=== PATIENT | female | born 1995 | race Caucasian/White ===

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

== ENCOUNTER 2017-10-12 15:55 | Inpatient (IN) | payer OTHER ==
[~2017-10-12] VITALS: Ht 167.6 cm; Wt 69.6 kg
[2017-10-12 16:56] LABS: BASO % 0.3 %; BASO ABS # 0.03 K/uL (0-0.2); EOS % 1.1 %; HEMATOCRIT 38.5 % (37-47); HEMOGLOBIN 12.7 g/dL (12.0-16.0); IG# 0.02 K/uL (0.00-0.02); LYMPH % 15.6 %; MEAN CELL VOLUME 90.2 fL (80-100); MEAN CORPUSCULAR HEMOGLOBIN 29.7 pg (25-34); MEAN PLATELET VOLUME 9.6 fL (7.4-10.4); MONO % 5.6 %; NEUT % 77.2 %; NEUT ABS # 6.95 K/uL (1.4-6.5); PLATELET COUNT 177 K/uL (130-400); RED CELL DISTRIBUTION WIDTH CV 12.8 % (11.5-14.5)
[2017-10-12 17:07] LABS: INR 1.1 (0.9-1.1)
[2017-10-12 17:25] LABS: ALBUMIN 4.2 gm/dl (3.4-5.0); CALCIUM 9.1 mg/dl (8.5-10.1); CREATININE 0.67 mg/dl (0.60-1.20); POTASSIUM 4.5 mmol/L (3.5-5.1)
[2017-10-12 17:34] LABS: CKMB 0.6 ng/ml (0.5-3.6); TOTAL PROTEIN 7.8 gm/dl (6.4-8.2)
[2017-10-12] MEDS ORDERED: OPTIRAY 320 IV PRN (17:45)
--- NOTE | 2017-10-12 18:15 | DIAGNOSTIC IMAGING REPORT ---
(CHEST FOR PE) ANGIO WITH CT DOSE: 209.53 mGy.cm HISTORY: Chest pain dyspnea TECHNIQUE: Multiaxial CT images of the chest were performed following the intravenous administration of contrast to evaluate the pulmonary arteries. Maximal intensity projection images were also obtained. A dose lowering technique was utilized adhering to the principles of ALARA. COMPARISON STUDY: 07/04/2015 FINDINGS: Thoracic aorta is unremarkable in course and caliber. There are findings of extensive acute pulmonary emboli involving the first order and/or primary right as well as left pulmonary arterial vasculature. There is no evidence for pulmonary embolus. Extensive emboli are identified throughout both hemithoraces. Lungs remain generally clear. IMPRESSION: Extensive bilateral acute pulmonary emboli. This report was phoned to the emergency room The above report was generated using voice recognition software. It may contain grammatical, syntax or spelling errors. Electronically signed by: Hema Harrison M.D. 10/12/2017 6:14 PM Dictated Date/Time: 10/12/2017 6:09 PM
--- NOTE | 2017-10-12 18:49 | EMERGENCY ROOM VISIT NOTE ---
History Report prepared by Adele: Gwen Hopkins Under the Supervision of: Dr. Ponce Rose D.O. First contact with patient: 16:27 Chief Complaint: CHEST PAIN Stated Complaint: CHEST PAIN, SHORTNESS OF BREATH-[facility] REF Nursing Triage Summary: PT c/o SOB and CP intermittently x 1 week. 2015 Had PE. AntiThrombinDeficiency Hx. ASA 81mg/day, did not take today Bilateral calf pain she believes from working out. Sent her from [facility] History of Present Illness The patient is a 22 year old female who presents to the Emergency Room with complaints of intermittent chest pain starting 1 week ago. She was seen at [facility] and sent to the ED. The chest pain became constant yesterday. Her chest pain occurs with exertion and improves with resting. She is also having discomfort with deep inspiration. She has also been SOB with walking. She denies any recent upper respiratory symptoms. She has been having discomfort in the left leg for the past month which occurs mostly with working out. She has a history of antithrombin deficiency. She had a PE 2 years ago. This pain is not as severe as her previous PE. Source of History: patient Onset: 1 week ago Position: chest Quality: other (pain) Timing: intermittent Modifying Factors (Worsening): exertion Modifying Factors (Relieving): rest Associated Symptoms: + SOB Note: Pt reports left leg pain. Review of Systems See HPI for pertinent positives & negatives. A total of 10 systems reviewed and were otherwise negative. Past Medical & Surgical Medical Problems: (1) Factor V deficiency (2) Pulmonary embolism Family History Blood clots Factor V deficiency Social History Smoking Status: Never Smoker Drug Use: none Marital Status: single Occupation Status: [employer] student Current/Historical Medications No Active Prescriptions or Reported Meds Allergies Coded Allergies: Diclofenac (Verified Allergy, Severe, CHOKING, 10/12/17) Sulfamethoxazole w/Trimethoprim (Unverified Allergy, Severe, CHOAKING, ) Physical Exam Vital Signs Date Time Temp Pulse Resp B/P (MAP) Pulse Ox O2 Delivery O2 Flow Rate FiO2 10/12/17 20:18 79 16 128/83 96 Room Air 10/12/17 18:26 85 20 132/91 95 Room Air 10/12/17 16:55 76 10/12/17 16:07 98 Room Air 10/12/17 16:03 36.9 83 18 112/73 97 Room Air Physical Exam CONSTITUTIONAL/VITAL SIGNS: Reviewed / noted above. GENERAL: Non-toxic in appearance. INTEGUMENTARY: Warm, dry, and [place]. HEAD: Normocephalic. EYES: without scleral icterus or trauma. ENT/OROPHARYNX: clear and moist. LYMPHADENOPATHY/NECK: Is supple without lymphadenopathy or meningismus. RESPIRATORY: Lungs clear and equal. CARDIOVASCULAR: Regular rate and rhythm. GI/ABDOMEN: Soft and nontender. No organomegaly or pulsatile mass. No rebound or guarding. Normal bowel sounds. EXTREMITIES: Warm and well perfused. BACK: No CVA tenderness. NEUROLOGICAL: Intact without focal deficits. PSYCHIATRIC: normal affect. MUSCULOSKELETAL: Normally developed with good muscle tone. Medical Decision & Procedures ER Provider Diagnostic Interpretation: Radiology results as stated below per my review and radiologist interpretation: (CHEST FOR PE) ANGIO WITH CT DOSE: 209.53 mGy.cm HISTORY: Chest pain dyspnea TECHNIQUE: Multiaxial CT images of the chest were performed following the intravenous administration of contrast to evaluate the pulmonary arteries. Maximal intensity projection images were also obtained. A dose lowering technique was utilized adhering to the principles of ALARA. COMPARISON STUDY: 07/04/2015 FINDINGS: Thoracic aorta is unremarkable in course and caliber. There are findings of extensive acute pulmonary emboli involving the first order and/or primary right as well as left pulmonary arterial vasculature. There is no evidence for pulmonary embolus. Extensive emboli are identified throughout both hemithoraces. Lungs remain generally clear. IMPRESSION: Extensive bilateral acute pulmonary emboli. This report was phoned to the emergency room The above report was generated using voice recognition software. It may contain grammatical, syntax or spelling errors. Electronically signed by: Hema Harrison M.D. 10/12/2017 6:14 PM Dictated Date/Time: 10/12/2017 6:09 PM Laboratory Results 10/12/17 16:45 Red Blood Count 4.27, Mean Corpuscular Volume 90.2, Mean Corpuscular Hemoglobin 29.7, Mean Corpuscular Hemoglobin Concent 33.0, Mean Platelet Volume 9.6, Neutrophils (%) (Auto) 77.2, Lymphocytes (%) (Auto) 15.6, Monocytes (%) (Auto) 5.6, Eosinophils (%) (Auto) 1.1, Basophils (%) (Auto) 0.3, Neutrophils # (Auto) 6.95, Lymphocytes # (Auto) 1.40, Monocytes # (Auto) 0.50, Eosinophils # (Auto) 0.10, Basophils # (Auto) 0.03 10/12/17 16:45 Test 10/12/17 16:45 White Blood Count 9.00 K/uL (4.8-10.8) Red Blood Count 4.27 M/uL (4.2-5.4) Hemoglobin 12.7 g/dL (12.0-16.0) Hematocrit 38.5 % (37-47) Mean Corpuscular Volume 90.2 fL (80-100) Mean Corpuscular Hemoglobin 29.7 pg (25-34) Mean Corpuscular Hemoglobin Concent 33.0 g/dl (32-36) Platelet Count 177 K/uL (130-400) Mean Platelet Volume 9.6 fL (7.4-10.4) Neutrophils (%) (Auto) 77.2 % Lymphocytes (%) (Auto) 15.6 % Monocytes (%) (Auto) 5.6 % Eosinophils (%) (Auto) 1.1 % Basophils (%) (Auto) 0.3 % Neutrophils # (Auto) 6.95 K/uL (1.4-6.5) Lymphocytes # (Auto) 1.40 K/uL (1.2-3.4) Monocytes # (Auto) 0.50 K/uL (0.11-0.59) Eosinophils # (Auto) 0.10 K/uL (0-0.5) Basophils # (Auto) 0.03 K/uL (0-0.2) RDW Standard Deviation 42.0 fL (36.4-46.3) RDW Coefficient of Variation 12.8 % (11.5-14.5) Immature Granulocyte % (Auto) 0.2 % Immature Granulocyte # (Auto) 0.02 K/uL (0.00-0.02) Prothrombin Time 11.1 SECONDS (9.0-12.0) Prothromb Time International Ratio 1.1 (0.9-1.1) Activated Partial Thromboplast Time 27.0 SECONDS (21.0-31.0) Partial Thromboplastin Ratio 1.0 Anion Gap 7.0 mmol/L (3-11) Est Creatinine Clear Calc Drug Dose 135.5 ml/min Estimated GFR () 146.7 Estimated GFR (Non- 126.5 BUN/Creatinine Ratio 18.1 (10-20) Calcium Level 9.1 mg/dl (8.5-10.1) Total Bilirubin 0.7 mg/dl (0.2-1) Direct Bilirubin 0.2 mg/dl (0-0.2) Aspartate Amino Transf (AST/SGOT) 11 U/L (15-37) Alanine Aminotransferase (ALT/SGPT) 15 U/L (12-78) Alkaline Phosphatase 52 U/L (45-117) Total Creatine Kinase 30 U/L (26-192) Creatine Kinase MB 0.6 ng/ml (0.5-3.6) Creatine Kinase MB Ratio 2.0 (0-3.0) Troponin I 0.116 ng/ml (0-0.045) Total Protein 7.8 gm/dl (6.4-8.2) Albumin 4.2 gm/dl (3.4-5.0) Lipase 141 U/L (73-393) Laboratory results as stated above per my review. Medications Administered Medications (Trade) Dose Ordered Sig/Concepción Route Start Time Stop Time Status Last Admin Dose Admin Heparin Sodium (Porcine) (Heparin Sq 5000 Unit/0.5ml) 5,000 unit NOW ONCE IV 10/12/17 19:45 10/12/17 19:46 DC 10/12/17 19:43 5,000 UNIT Heparin Sodium/ Dextrose 500 ml @ 23 mls/hr [id number] PRN IV 10/12/17 19:45 10/12/17 23:59 10/12/17 19:43 23 MLS/HR Acetaminophen (Tylenol Tab) 650 mg Q4H PRN PO 10/12/17 20:00 11/11/17 19:59 10/12/17 22:09 650 MG ECG Per My Interpretation Indication: chest pain Rate (beats per minute): 75 Rhythm: normal sinus Findings: other (no ST elevation, no ST depression) ED Course 1627: Previous medical records were reviewed. The patient was evaluated in room B11A. A complete history and physical examination was performed. 1811: Dr. Harrison of radiology phoned to inform me of the CT results. 1816: Heparin Sodium/Dextrose IV. 1822: On reevaluation, the patient is resting comfortably. I discussed the results and findings with her. She verbalized agreement of the treatment plan. The patient will be evaluated for further management and care. 1934: I discussed the patient's case with JOHN Davison hospitalist. The patient will be evaluated for further treatment and disposition. Medical Decision the differential was considered includes acute myocardial infarction, acute coronary syndrome, myocarditis, pericarditis, pericardial effusions /tamponad, esophageal perforation, thoracic aortic dissection, pulmonary embolism, pneumonia, pneumothorax, pancreatitis, shingles, acute cholecystitis, perforated abdominal viscus. This is a 22-year-old female who presents to the ED with a chief complaint of chest discomfort as well as some tenderness in the upper portion of her chest. She also reports shortness of breath with walking. Initially will come and go over the past week but it has been continuous over the past 24 hours or so. The patient reports a history of PEs. She states that she had a PE 2 years ago. The patient states that when she went to [facility], her doctor gave her 3 shots of Lovenox for 3 days because of an elevated d-dimer. The patient does not have any follow-up when she returned until today when she went [facility]. The patient was sent here for further evaluation after being evaluated there. An EKG here shows a normal sinus rhythm. Her CBC is normal, complete metabolic panel was normal. Troponin is slightly elevated at 0.116. CT scan of the chest reveals extensive bilateral PEs. The patient has remained hemodynamically stable during her stay here. She was told the results of the test. She was started on IV heparin. She will be seen by the hospitalist for further inpatient evaluation and care. Medication Reconcilliation Current Medication List: was personally reviewed by wv Blood Pressure Screening Patient's blood pressure: Normal blood pressure Blood pressure disposition: Did not require urgent referral Consults Time Called: 1817 Consulting Physician: JOHN Davison hospitalist Returned Call: [phone] Discussed the patient's case. The patient will be evaluated for further treatment and disposition. Impression Primary Impression: Bilateral pulmonary embolism Additional Impression: Elevated troponin Critical Care I have personally spent 30 minutes of critical care time in the direct management of this patient. This includes bedside care, interpretation of diagnostic studies, and testing, discussion with consultants, patient, and family members, and other required patient management activities. This 30 minutes is in excess of all separately billable procedures. Scribe Attestation The scribe's documentation has been prepared under my direction and personally reviewed by me in its entirety. I confirm that the note above accurately reflects all work, treatment, procedures, and medical decision making performed by me. Departure Information Dispostion Being Evaluated By Hospitalist Prescriptions No Active Prescriptions or Reported Meds Referrals [facility] (PCP) Patient Instructions My [facility] Problem Qualifiers
[2017-10-12] MEDS ORDERED: HEPARIN SOD 5000 UNIT/0.5 ML CARP IV ONE (19:45)
[2017-10-12] MEDS ORDERED: HEPARIN 25,000 UNIT/500ML D5W 500 ML IV PRN (19:45)
[2017-10-12] MEDS ORDERED: ONDANSETRON INJ 2 MG/ML 2 ML VIAL IV PRN (20:00)
[2017-10-12] MEDS ORDERED: WARFARIN SOD 7.5 MG TAB PO ONE (20:00)
[2017-10-12] MEDS ORDERED: MAGNESIUM HYDROXIDE SUSP 30 ML UDC PO PRN (20:00)
[2017-10-12] MEDS ORDERED: POLYETHYLENE (MIRALAX) 17 GM PACK PO PRN (20:00)
[2017-10-12] MEDS ORDERED: ALUMINUM/MAGNESIUM/SIMETH (MAALOX MAX) 30 ML UDC PO PRN (20:00)
--- NOTE | 2017-10-12 20:11 | Medical Consult ---
Consultation Date of Consultation: Oct 12, 2017. 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 She was admitted to the hospital with BL PEs 10/14. She was subsequently diagnosed with ATIII deficiency and remained on Coumadin for an extended period. Over winter she had returned to her [place], [place]. She developed pleuritic CP prior to returning to [place]. Assuming that she likely had a PE, her primary MD in [facility] provided her with a few doses of Lovenox for the trip back to the [facility], where she was to follow up with her local MD. She completed the prescribed Lovenox but did not follow up. She presents today with pleuritic CP. A CTA was repeated and again revealed acute BL pulmonary emboli. CTA: There are findings of extensive acute pulmonary emboli involving the first order and/or primary right as well as left pulmonary arterial vasculature. Extensive emboli are identified throughout both hemithoraces. Lungs remain generally clear. 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[facility] Smoking Status: Never Smoker Drug Use: none Marital Status: single Occupation Status: [employer] student Allergies Coded Allergies: Diclofenac (Verified Allergy, Severe, CHOKING, 10/12/17) Sulfamethoxazole w/Trimethoprim (Unverified Allergy, Severe, CHOAKING, ) Current Inpatient Medications Current Inpatient Medications Medications (Trade) Dose Ordered Sig/Concepción Route Start Time Stop Time Status Last Admin Dose Admin Ioversol (Optiray 320) 100 ml UD PRN IV 10/12/17 17:45 10/16/17 17:44 Heparin Sodium/ Dextrose 500 ml @ 23 mls/hr [id number] PRN IV 10/12/17 19:45 10/12/17 23:59 10/12/17 19:43 23 MLS/HR Warfarin Sodium (Coumadin Tab) 7.5 mg NOW PO 10/12/17 20:00 11/11/17 19:59 UNV Review of Systems Constitutional: No fever, No chills, No sweats Eyes: No worsening of vision ENT: No hearing loss, No unusual epistaxis, No nasal symptoms Respiratory: No cough, No wheezing Cardiovascular: + chest pain, No PND Abdomen: No pain, No nausea Genitourinary - Female: No dysuria, No urinary frequency, No urinary urgency Neurologic: No memory loss, No paralysis, No weakness Psychiatric: No depression symptoms Endocrine: No fatigue Hematologic / Lymphatic: No abnormal bleeding/bruising Integumentary: No rash Allergic / Immunologic: No environmental allergies Physical Exam Date Time Temp Pulse Resp B/P (MAP) Pulse Ox O2 Delivery O2 Flow Rate FiO2 10/12/17 18:26 85 20 132/91 95 Room Air 10/12/17 16:55 76 10/12/17 16:07 98 Room Air 10/12/17 16:03 36.9 83 18 112/73 97 Room Air General Appearance: WD/WN, no apparent distress Head: normocephalic Eyes: normal inspection ENT: normal ENT inspection, pharynx normal Neck: supple, no JVD Respiratory/Chest: chest non-tender, lungs clear, normal breath sounds Cardiovascular: regular rate, rhythm, no edema Abdomen/GI: normal bowel sounds, non tender, soft Back: normal inspection, no CVA tenderness Extremities/Musculoskelatal: normal inspection, no calf tenderness 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, no motor/sensory deficits, alert Skin: normal color Laboratory Results Last 24 Hours Test 10/12/17 16:45 White Blood Count 9.00 K/uL Red Blood Count 4.27 M/uL Hemoglobin 12.7 g/dL Hematocrit 38.5 % Mean Corpuscular Volume 90.2 fL Mean Corpuscular Hemoglobin 29.7 pg Mean Corpuscular Hemoglobin Concent 33.0 g/dl Platelet Count 177 K/uL Mean Platelet Volume 9.6 fL Neutrophils (%) (Auto) 77.2 % Lymphocytes (%) (Auto) 15.6 % Monocytes (%) (Auto) 5.6 % Eosinophils (%) (Auto) 1.1 % Basophils (%) (Auto) 0.3 % Neutrophils # (Auto) 6.95 K/uL Lymphocytes # (Auto) 1.40 K/uL Monocytes # (Auto) 0.50 K/uL Eosinophils # (Auto) 0.10 K/uL Basophils # (Auto) 0.03 K/uL RDW Standard Deviation 42.0 fL RDW Coefficient of Variation 12.8 % Immature Granulocyte % (Auto) 0.2 % Immature Granulocyte # (Auto) 0.02 K/uL Prothrombin Time 11.1 SECONDS Prothromb Time International Ratio 1.1 Activated Partial Thromboplast Time 27.0 SECONDS Partial Thromboplastin Ratio 1.0 Sodium Level 139 mmol/L Potassium Level 4.5 mmol/L Chloride Level 105 mmol/L Carbon Dioxide Level 27 mmol/L Anion Gap 7.0 mmol/L Blood Urea Nitrogen 12 mg/dl Creatinine 0.67 mg/dl Est Creatinine Clear Calc Drug Dose 135.5 ml/min Estimated GFR () 146.7 Estimated GFR (Non- 126.5 BUN/Creatinine Ratio 18.1 Random Glucose 87 mg/dl Calcium Level 9.1 mg/dl Total Bilirubin 0.7 mg/dl Direct Bilirubin 0.2 mg/dl Aspartate Amino Transf (AST/SGOT) 11 U/L Alanine Aminotransferase (ALT/SGPT) 15 U/L Alkaline Phosphatase 52 U/L Total Creatine Kinase 30 U/L Creatine Kinase MB 0.6 ng/ml Creatine Kinase MB Ratio 2.0 Troponin I 0.116 ng/ml Total Protein 7.8 gm/dl Albumin 4.2 gm/dl Lipase 141 U/L Assessment & Plan 22 y/o F 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 She was admitted to the hospital with BL PEs 10/14. She was subsequently diagnosed with ATIII deficiency and remained on Coumadin for an extended period. Over winter she had returned to her [place] country, [place]. She developed pleuritic CP prior to returning to [employer]. Assuming that she likely had a PE, her primary MD in [place] provided her with a few doses of Lovenox for the trip back to the [facility], where she was to follow up with her local MD. She completed the prescribed Lovenox but did not follow up. She presents today with pleuritic CP. A CTA was repeated and again revealed acute BL pulmonary emboli. The pt does not exhibit tachycardia, hypoxia or evidence of significant heart strain. She is pending a LE ultrasound. She will likely be DCd to follow-up with Dr Jones in the coming week. The pt has requested Coumadin for anticoagulation as she does not trust the newer agents. We will start her on Coumadin and have provided her with Lovenox to last until she is able to attend the Coumadin clinic. She is instructed to return to the hospital with worsening CP, onset of SOB or palpitations. Instructed to avoid activities which can lead to significant trauma - such ac contact sports - while on Coumadin Total time for this consult including review of labs, meds, imaging, records - discussion with pt, ER attending, Coumadin clinic attending - 40 min
--- NOTE | 2017-10-12 21:02 | DIAGNOSTIC IMAGING REPORT ---
VENOUS DOPPLER LWR EXT BILA HISTORY: Pain. Edema. DVT COMPARISON STUDY: None. FINDINGS: There is normal compressibility, flow, and augmentation within the bilateral lower extremity deep venous systems. IMPRESSION: No DVT within the right or left lower extremity. The above report was generated using voice recognition software. It may contain grammatical, syntax or spelling errors. Electronically signed by: Hema Harrison M.D. 10/12/2017 9:01 PM Dictated Date/Time: 10/12/2017 9:01 PM
--- NOTE | 2017-10-12 21:22 | History and Physical ---
History & Physical Date of Service Oct 12, 2017. 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 She was admitted to the hospital with BL PEs 10/14. She was subsequently diagnosed with ATIII deficiency and remained on Coumadin for an extended period. Over winter she had returned to her [place], [place]. She developed pleuritic CP prior to returning to [place]. Assuming that she likely had a PE, her primary MD in [facility] provided her with a few doses of Lovenox for the trip back to the [facility], where she was to follow up with her local MD. She completed the prescribed Lovenox but did not follow up. She presents today with pleuritic CP. A CTA revealed acute BL pulmonary emboli. The pt does not c/o SOB, palpitations or fevers. CTA: There are findings of extensive acute pulmonary emboli involving the first order and/or primary right as well as left pulmonary arterial vasculature. Extensive emboli are identified throughout both hemithoraces. Lungs remain generally clear. 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[facility] Smoking Status: Never Smoker Drug Use: none Marital Status: single Occupation Status: [employer] student Allergies Coded Allergies: Diclofenac (Verified Allergy, Severe, CHOKING, 10/12/17) Sulfamethoxazole w/Trimethoprim (Unverified Allergy, Severe, CHOAKING, ) Current Inpatient Medications Current Inpatient Medications Medications (Trade) Dose Ordered Sig/Concepción Route Start Time Stop Time Status Last Admin Dose Admin Ioversol (Optiray 320) 100 ml UD PRN IV 10/12/17 17:45 10/16/17 17:44 Heparin Sodium/ Dextrose 500 ml @ 23 mls/hr [id number] PRN IV 10/12/17 19:45 10/12/17 23:59 10/12/17 19:43 23 MLS/HR Warfarin Sodium (Coumadin Tab) 7.5 mg NOW PO 10/12/17 20:00 11/11/17 19:59 UNV Review of Systems Constitutional: No fever, No chills, No sweats Eyes: No worsening of vision ENT: No hearing loss, No unusual epistaxis, No nasal symptoms Respiratory: No cough, No wheezing Cardiovascular: + chest pain, No PND Abdomen: No pain, No nausea Genitourinary - Female: No dysuria, No urinary frequency, No urinary urgency Neurologic: No memory loss, No paralysis, No weakness Psychiatric: No depression symptoms Endocrine: No fatigue Hematologic / Lymphatic: No abnormal bleeding/bruising Integumentary: No rash Allergic / Immunologic: No environmental allergies Physical Exam Date Time Temp Pulse Resp B/P (MAP) Pulse Ox O2 Delivery O2 Flow Rate FiO2 10/12/17 18:26 85 20 132/91 95 Room Air 10/12/17 16:55 76 10/12/17 16:07 98 Room Air 10/12/17 16:03 36.9 83 18 112/73 97 Room Air General Appearance: WD/WN, no apparent distress Head: normocephalic Eyes: normal inspection ENT: normal ENT inspection, pharynx normal Neck: supple, no JVD Respiratory/Chest: chest non-tender, lungs clear, normal breath sounds Cardiovascular: regular rate, rhythm, no edema Abdomen/GI: normal bowel sounds, non tender, soft Back: normal inspection, no CVA tenderness Extremities/Musculoskelatal: normal inspection, no calf tenderness 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, no motor/sensory deficits, alert Skin: normal color Laboratory Results Last 24 Hours Test 10/12/17 16:45 White Blood Count 9.00 K/uL Red Blood Count 4.27 M/uL Hemoglobin 12.7 g/dL Hematocrit 38.5 % Mean Corpuscular Volume 90.2 fL Mean Corpuscular Hemoglobin 29.7 pg Mean Corpuscular Hemoglobin Concent 33.0 g/dl Platelet Count 177 K/uL Mean Platelet Volume 9.6 fL Neutrophils (%) (Auto) 77.2 % Lymphocytes (%) (Auto) 15.6 % Monocytes (%) (Auto) 5.6 % Eosinophils (%) (Auto) 1.1 % Basophils (%) (Auto) 0.3 % Neutrophils # (Auto) 6.95 K/uL Lymphocytes # (Auto) 1.40 K/uL Monocytes # (Auto) 0.50 K/uL Eosinophils # (Auto) 0.10 K/uL Basophils # (Auto) 0.03 K/uL RDW Standard Deviation 42.0 fL RDW Coefficient of Variation 12.8 % Immature Granulocyte % (Auto) 0.2 % Immature Granulocyte # (Auto) 0.02 K/uL Prothrombin Time 11.1 SECONDS Prothromb Time International Ratio 1.1 Activated Partial Thromboplast Time 27.0 SECONDS Partial Thromboplastin Ratio 1.0 Sodium Level 139 mmol/L Potassium Level 4.5 mmol/L Chloride Level 105 mmol/L Carbon Dioxide Level 27 mmol/L Anion Gap 7.0 mmol/L Blood Urea Nitrogen 12 mg/dl Creatinine 0.67 mg/dl Est Creatinine Clear Calc Drug Dose 135.5 ml/min Estimated GFR () 146.7 Estimated GFR (Non- 126.5 BUN/Creatinine Ratio 18.1 Random Glucose 87 mg/dl Calcium Level 9.1 mg/dl Total Bilirubin 0.7 mg/dl Direct Bilirubin 0.2 mg/dl Aspartate Amino Transf (AST/SGOT) 11 U/L Alanine Aminotransferase (ALT/SGPT) 15 U/L Alkaline Phosphatase 52 U/L Total Creatine Kinase 30 U/L Creatine Kinase MB 0.6 ng/ml Creatine Kinase MB Ratio 2.0 Troponin I 0.116 ng/ml Total Protein 7.8 gm/dl Albumin 4.2 gm/dl Lipase 141 U/L Assessment & Plan 22 y/o F 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 She was admitted to the hospital with BL PEs 10/14. She was subsequently diagnosed with ATIII deficiency and remained on Coumadin for an extended period. Over winter she had returned to her [place], [place]. She developed pleuritic CP prior to returning to [place]. Assuming that she likely had a PE, her primary MD in [place] provided her with a few doses of Lovenox for the trip back to the [facility], where she was to follow up with her local MD. She completed the prescribed Lovenox but did not follow up. She presents today with pleuritic CP. A CTA was repeated and again revealed acute BL pulmonary emboli. Although the pt is stable, she does have BL central PEs which does appear on some exclusion criteria for DC. She also has an elevated trop which in the context of a PE is less concerning. She will remain overnight and we will obtain an echo AM. We have placed her on Lovenox and Coumadin. The pt is requesting Warfarin as her choice for an anticoagulant as she does not trust the newer agents. We have discussed the case with Dr. Jones in terms of follow-up. She can likely be seen this coming Tuesday at the Coumadin clinic. Full code - Full dose Lovenox Total time for this admit including review of labs, meds, imaging, records - discussion with pt and ER attending - 35 min
[2017-10-12] MEDS ORDERED: IV FLUIDS COMPLETED PRN (21:30)
[2017-10-12] MEDS: ACETAMINOPHEN 325 MG TAB PO PRN (22:09)
[2017-10-12 22:52] VITALS: BP 119/81; PULSE 89; TEMP 36.4; O2SAT 98
[2017-10-13] VITALS (8 sets, daily range): BP systolic 109–120; BP diastolic 68–81; PULSE 73–89; TEMP 36.4–37.5; O2SAT 95–97; Ht 167.6 cm; Wt 69.6 kg
[2017-10-13] MEDS: ACETAMINOPHEN 325 MG TAB PO PRN (03:54)
[2017-10-13] MEDS: MoRPHine SULFATE 2 MG/ML CARP IV PRN ×2 (07:06→15:20)
[2017-10-13] MEDS: ENOXAPARIN 80 MG/0.8 ML SYR SQ SCH ×2 (09:24→20:03)
--- NOTE | 2017-10-13 09:46 | ECHOCARDIOGRAM REPORT ---
*NOTICE TO RECEIVING [employer] This information is strictly Confidential and protected under [place] law. [place] law prohibits you from making any further disclosure of this information unless further disclosure is expressly permitted by the written consent of the person to whom it pertains or is authorized by law. A general authorization for the release of medical or other information is not sufficient for this purpose. Hospital accepts no responsibility if the information is made available to any other person, INCLUDING THE PATIENT. Interpretation Summary * Name: RAUL MORRISSEY Study Date: 10/13/2017 06:39 AM BP: 119/81 mmHg * Patient Location: [facility]\S\[id number] HR: 89 * : 1995 (M/d/yyyy) Gender: Female Height: 66 in * Age: 22 yrs Ethnicity: CA Weight: 157 lb * Ordering Physician: Bobby De Jesus * Referring Physician: [facility] * Performed By: Abigail Pedroza RCS * * Reason For Study: PE, Eval Right Heart Strain * BSA: 1.8 m2 * -- Conclusions -- * 1. Normal LV size and wall thickness. * 2. Normal LV function. LVEF 55-60%. No regional wall motion abnormalities. * 3. Normal RV size and function. * 4. No significant valvular abnormalities. * 5. Normal estimated RA and PA pressures. * 6. No prior studies for comparison. Procedure Details * A complete two-dimensional transthoracic echocardiogram was performed (2D, M-mode, Doppler and color flow Doppler). Left Ventricle * The left ventricle is grossly normal size. * There is normal left ventricular wall thickness. * Ejection Fraction = 55-60%. Right Ventricle * The right ventricle is grossly normal size. * The right ventricular systolic function is normal as assessed by tricuspid annular plane systolic excursion (TAPSE) (normal >1.5 cm). Atria * The left atrial size is normal. * Right atrial size is normal. * No ASD detected; PFO is not assessed. Mitral Valve * The mitral valve is grossly normal. * There is no mitral valve stenosis. * There is no mitral regurgitation noted. Tricuspid Valve * The tricuspid valve is not well visualized, but is grossly normal. * There is no tricuspid stenosis. * There is trace tricuspid regurgitation. Aortic Valve * The aortic valve opens well. * No hemodynamically significant valvular aortic stenosis. * Trace aortic regurgitation. Pulmonic Valve * The pulmonary valve is inadequately visualized, but the Doppler data is adequate for interpretation. * There is no pulmonic valvular stenosis. * Trace pulmonic valvular regurgitation. Great Vessels * The aortic root and proximal ascending aorta are normal sized. Pericardium/Pleural * There is no pericardial effusion. Great Vessels * Normal inferior vena cava size and collapsability with sniff indicates a normal right atrial pressure of 3 mmHg * There is no evidence of pulmonary hypertension. The PA systolic pressure is less than 36 mmHg. MMode 2D Measurements and Calculations IVSd 0.89 cm IVSs 1.2 cm LVIDd 4.6 cm LVIDs 2.9 cm LVPWd 0.88 cm LVPWs 1.3 cm IVS/LVPW 1.0 FS 37.4 % EDV(Teich) 99.2 ml ESV(Teich) 32.3 ml EF(Teich) 67.4 % EDV(cubed) 99.7 ml ESV(cubed) 24.5 ml EF(cubed) 75.4 % % IVS thick 38.2 % % LVPW thick 53.7 % LV mass(C)d 135.7 grams LV mass(C)dI 75.2 grams/m\S\2 LV mass(C)s 116.8 grams LV mass(C)sI 64.7 grams/m\S\2 SV(Teich) 66.8 ml SI(Teich) 37.0 ml/m\S\2 SV(cubed) 75.2 ml SI(cubed) 41.7 ml/m\S\2 Ao root diam 3.1 cm Ao root area 7.6 cm\S\2 ACS 1.6 cm LA dimension 3.2 cm asc Aorta Diam 2.5 cm LA/Ao 1.0 EDV(MOD-sp4) 86.0 ml ESV(MOD-sp4) 35.0 ml EF(MOD-sp4) 59.3 % EDV(MOD-sp2) 114.0 ml ESV(MOD-sp2) 45.0 ml EF(MOD-sp2) 60.5 % SV(MOD-sp4) 51.0 ml SI(MOD-sp4) 28.3 ml/m\S\2 SV(MOD-sp2) 69.0 ml SI(MOD-sp2) 38.2 ml/m\S\2 Doppler Measurements and Calculations MV E max andre 77.8 cm/sec MV A max andre 45.7 cm/sec MV E/A 1.7 MV P1/2t max andre 112.7 cm/sec MV P1/2t 75.7 msec MVA(P1/2t) 2.9 cm\S\2 MV dec slope 436.2 cm/sec\S\2 MV dec time 0.27 sec Ao V2 max 118.1 cm/sec Ao max PG 5.6 mmHg Ao max PG (full) 0.96 mmHg LV V1 max PG 4.6 mmHg LV V1 max 107.5 cm/sec PA V2 max 87.1 cm/sec PA max PG 3.0 mmHg TR max andre 255.6 cm/sec
[2017-10-13] MEDS ORDERED: HYDROCODONE/ACETAMIN 5/325MG TAB PO PRN (17:15)
[2017-10-13] MEDS ORDERED: WARFARIN SOD 4 MG TAB PO ONE (17:45)
--- NOTE | 2017-10-13 21:14 | Progress Note ---
Subjective Date of Service: Oct 13, 2017. Subjective Pt evaluation today including: conversation w/ patient, physical exam, chart review, lab review, review of studies (echo, CTA chest), conversation w/ lead sales consultant (Dr. Jones, anticoagulation clinic), review of inpatient medication list Pain: pleuritic chest pain only PO Intake: normal Voiding: no voiding problems other than pleuritic chest pain she has minimal dyspnea on exertion; no dyspnea at rest confirms she is not a smoker and that she takes no oral contraceptives Problem List Medical Problems: (1) Bilateral pulmonary embolism Status: Acute (2) Corneal abrasion, right Status: Acute (3) Elevated troponin Status: Acute (4) Pleuritic chest pain Status: Acute (5) Vomiting Status: Acute Review of Systems Constitutional: No fever Respiratory: + dyspnea on exertion, No cough, No sputum, No wheezing, No dyspnea at rest, No hemoptysis Cardiac: + see HPI, + chest pain, No orthopnea, No PND, No edema Abdomen: No pain Objective Vital Signs Date Time Temp Pulse Resp B/P (MAP) Pulse Ox O2 Delivery O2 Flow Rate FiO2 10/13/17 19:58 37.5 77 16 111/73 (86) 97 Room Air 10/13/17 16:13 36.9 83 18 113/72 (86) 95 Room Air 10/13/17 16:13 Room Air 10/13/17 12:00 37.0 78 18 120/78 (92) 95 Room Air 10/13/17 12:00 97 Room Air 10/13/17 09:38 Room Air 10/13/17 08:00 97 Room Air 10/13/17 07:47 36.7 73 16 111/75 (87) 96 Room Air 10/13/17 04:30 97 Room Air 10/13/17 00:00 36.4 89 18 119/81 97 Room Air 10/12/17 22:52 36.4 89 18 119/81 (94) 98 Room Air 10/12/17 21:49 80 16 122/83 97 Room Air 10/12/17 21:19 98 Physical Exam General Appearance: WD/WN, no apparent distress ENT: pharynx normal Neck: no JVD Respiratory/Chest: lungs clear, no respiratory distress, no accessory muscle use Cardiovascular: regular rate, rhythm, no gallop, no murmur Abdomen: normal bowel sounds, non tender, soft, no organomegaly Extremities: no pedal edema Neurologic/Psychiatric: alert, oriented x 3 Laboratory Results Last 24 Hours Test 10/13/17 07:06 Troponin I < 0.015 ng/ml Assessment and Plan 22yo female - 1. b/l pulmonary emboli - provoked, as she traveled to [facility] a few weeks ago and then traveled back [place] the [place]. This is in the setting of known anti-thrombin III deficiency and prior pulmonary emboli several years ago. LE venous duplex studies negative. Echo w/o RV strain or cor pulmonale. Spoke with Dr. Jones who knows the patient well as she was established with the coumadin clinic during her first VTE event. Plan - lovenox 70mg q12h bridge 4mg of coumadin tonight 4mg of coumadin tomorrow then 2mg of coumadin Sat/Sun then f/u in Anticoagulation Clinic on 10/17/17 of note - patient received 7.5mg of coumadin last pm at admission daily cbc, INR patient has 0 copay for the lovenox and knows how to use it coumadin will be LIFE-LONG 2. pleuritic chest pain - 2nd to #1 - norco prn counseled patient on natural history of her pain no evidence of pulmonary infarction on CTA last pm 3. FEN - no tachycardia or RV strain - thus, hold off on IVF. Regular diet. BMP wnl. 4. minimal positive troponin - myocardial demand ischemia/transient RV strain likely. needs urine HCG - ordered & pending if pleuritic chest pain is stable tomorrow am and O2 sats are normal at rest & with activity -- can d/c on lovenox bridge w/ coumadin Continued [facility] stay due to: inadequate oral pain control Discharge planning: home
[2017-10-14] VITALS (7 sets, daily range): BP systolic 108–118; BP diastolic 67–75; PULSE 79–99; TEMP 36.8–37.1; O2SAT 94–97
[2017-10-14 05:48] LABS: HEMATOCRIT 38.7 % (37-47); HEMOGLOBIN 12.7 g/dL (12.0-16.0); MEAN CELL VOLUME 90.4 fL (80-100); MEAN CORPUSCULAR HEMOGLOBIN 29.7 pg (25-34); MEAN CORPUSCULAR HGB CONC 32.8 g/dl (32-36); MEAN PLATELET VOLUME 9.7 fL (7.4-10.4); PLATELET COUNT 175 K/uL (130-400); RED CELL DISTRIBUTION WIDTH CV 12.6 % (11.5-14.5); RED CELL DISTRIBUTION WIDTH SD 41.6 fL (36.4-46.3); WHITE BLOOD COUNT 8.33 K/uL (4.8-10.8)
[2017-10-14 06:01] LABS: INR 1.2 (0.9-1.1)
[2017-10-14] MEDS ORDERED: SODIUM CHLORIDE 0.65% NA SOLN 45 ML (OCEAN) ONE (08:11)
[2017-10-14] MEDS: ENOXAPARIN 80 MG/0.8 ML SYR SQ SCH ×2 (08:17→19:42)
[2017-10-14] MEDS ORDERED: DOCUSATE SODIUM 100 MG CAP PO ONE (11:00)
[2017-10-14] MEDS ORDERED: DOCUSATE SODIUM 100 MG CAP ONE (14:52)
[2017-10-14] MEDS ORDERED: WARFARIN SOD 4 MG TAB PO SCH (16:00)
[2017-10-14] MEDS: DOCUSATE SODIUM 100 MG CAP PO SCH (19:41)
--- NOTE | 2017-10-14 22:10 | Hospitalist Progress Note ---
Hospitalist Progress Note Date of Service Oct 14, 2017. Subjective Pt evaluation today including: conversation w/ patient Patient continues with pleuritic chest pain and is drowsy with taking hydrocodone. She feels she is not ready to go home yet due to chest pain. Minimal shortness of breath and is ambulating. Telemetry shows normal sinus rhythm with rates in the 70s-80s. All Other Systems: Reviewed and Negative Objective Vital Signs Date Time Temp Pulse Resp B/P (MAP) Pulse Ox O2 Delivery O2 Flow Rate FiO2 10/14/17 20:10 Room Air 10/14/17 19:57 36.8 99 18 118/74 (89) 97 Room Air 10/14/17 16:00 97 Room Air 10/14/17 16:00 37.0 86 18 108/73 (85) 97 Room Air 10/14/17 12:12 36.8 79 16 117/75 (89) 96 Room Air 10/14/17 12:00 97 Room Air 10/14/17 08:00 97 Room Air 10/14/17 07:17 37.0 79 18 111/67 (82) 95 Room Air 10/14/17 04:54 37.1 79 18 113/74 (87) 94 Room Air 10/14/17 04:10 Room Air 10/14/17 00:10 Room Air 10/13/17 23:15 36.9 86 18 109/68 (82) 96 Room Air Physical Exam General Appearance: WD/WN, no apparent distress Eyes: normal inspection, sclerae normal ENT: hearing grossly normal Neck: trachea midline Respiratory/Chest: lungs clear, normal breath sounds, no respiratory distress, no accessory muscle use Cardiovascular: regular rate, rhythm, no edema, no gallop, no murmur Abdomen: normal bowel sounds, non tender, soft, no organomegaly Extremities: non-tender, normal inspection, no pedal edema, no calf tenderness Neurologic/Psychiatric: alert, normal mood/affect, oriented x 3 Skin: normal color, warm/dry, no rash Laboratory Results Last 24 Hours Test 10/14/17 05:09 10/14/17 09:10 White Blood Count 8.33 K/uL Red Blood Count 4.28 M/uL Hemoglobin 12.7 g/dL Hematocrit 38.7 % Mean Corpuscular Volume 90.4 fL Mean Corpuscular Hemoglobin 29.7 pg Mean Corpuscular Hemoglobin Concent 32.8 g/dl RDW Standard Deviation 41.6 fL RDW Coefficient of Variation 12.6 % Platelet Count 175 K/uL Mean Platelet Volume 9.7 fL Prothrombin Time 12.2 SECONDS Prothromb Time International Ratio 1.2 Urine Test NEG Assessment and Plan This patient is 22yo female with previous history of PE and Antithrombin III deficiency, here with bilateral pulmonary emboli. 1. b/l pulmonary emboli - provoked, as she traveled to [place] a few weeks ago and then [place] the [place]. This is in the setting of known anti-thrombin III deficiency and prior pulmonary emboli several years ago. LE venous duplex studies negative. Echo w/o RV strain or cor pulmonale. Plan - Continue Lovenox 70mg q12h bridge 4mg of coumadin tonight then 2mg of coumadin Sat/Sun then f/u in Anticoagulation Clinic on 10/17/17 CBC remains stable, will check daily INR patient has 0 copay for the lovenox and knows how to use it coumadin will be LIFE-LONG 2. pleuritic chest pain - 2nd to #1 - norco prn counseled patient on natural history of her pain no evidence of pulmonary infarction on CTA last pm 3. FEN - no tachycardia or RV strain - thus, hold off on IVF. Regular diet. BMP wnl. 4. minimal positive troponin - myocardial demand ischemia/transient RV strain likely. Negative urine HCG if pleuritic chest pain is stable tomorrow am and O2 sats are normal at rest & with activity-checked today with the nurse and was 95% and higher with ambulation-- can d/c on lovenox bridge w/ coumadin
[2017-10-15] VITALS (7 sets, daily range): BP systolic 106–113; BP diastolic 66–69; PULSE 72–82; TEMP 36.7–37.7; O2SAT 96–97
[2017-10-15 05:58] LABS: INR 1.5 (0.9-1.1)
[2017-10-15] MEDS: ENOXAPARIN 80 MG/0.8 ML SYR SQ SCH (08:39)
[2017-10-15] MEDS: DOCUSATE SODIUM 100 MG CAP PO SCH (08:39)
[2017-10-15] MEDS ORDERED: LVNIS80 SQ (13:36)
[2017-10-15] MEDS ORDERED: CLC100 PO (13:36)
[2017-10-15] MEDS ORDERED: ACET-1047 PO (13:36)
[2017-10-15] MEDS ORDERED: CMD2 PO (13:36)
--- NOTE | 2017-10-15 13:40 | Discharge Instructions ---
Discharge Instructions Date of Service Oct 15, 2017. Admission Reason for Admission: Pulmonary Embolism Discharge Discharge Diagnosis / Problem: Pulmonary embolism Discharge Goals Goal(s): Improve disease control, Diagnostic testing, Therapeutic intervention Activity Recommendations Activity Limitations: as noted below Lifting Limitations: gradually increase as tolerated Exercise/Sports Limitations: gradually increase as tolerated (do not go running or perform any strenuous lifting > 10 lbs until after seen by your PCP) Shower/Bathe: no limitations Driving or Machine Use: no limitations . Instructions / Follow-Up Instructions / Follow-Up You were admitted with a recurrent pulmonary embolism. You were started on coumadin and should remain on this for the rest of your life is possible. Please refrain from high-risk activities that could result in major trauma if possible. If you have any serious bleeding problems, severe headache, abdominal or back pain, please go to the nearest emergency room for evaluation. You should remain on Lovenox injections twice a day while taking the coumadin until your INR gets to the right level. Please follow up at the Coumadin Clinic at [facility] on Tuesday10/17/17. Please follow up with your PCP within 1-2 weeks as scheduled. Current Hospital Diet Patient's current hospital diet: Regular Diet Discharge Diet Recommended Diet: Regular Diet Procedures Procedures Performed: CTA chest Venous Doppler bilateral lower extremities Pending Studies Studies pending at discharge: no Laboratory Results Last 24 Hours Test 10/15/17 05:11 Prothrombin Time 15.6 SECONDS Prothromb Time International Ratio 1.5 Medical Emergencies . Who to Call and When: Medical Emergencies: If at any time you feel your situation is an emergency, please call 911 immediately. . Non-Emergent Contact Non-Emergency issues call your: Primary Care Provider Call Non-Emergent contact if: you have a fever, temperature is above 101, your pain is not controlled, your pain is worsening, your pain is unusual for you, your pain is concerning you, you have any medication questions . . "Provider Documentation" section prepared by Ce Blevins. . VTE Core Measure Inpt VTE Proph given/why not?: Enoxaparin (Lovenox)SQ, Warfarin (Coumadin)
--- NOTE | 2017-10-15 13:46 | Discharge Summary ---
Discharge Summary Date of Service Oct 15, 2017. Discharge Summary Admission Date: Oct 13, 2017 at 16:37 Discharge Date: Oct 15, 2017 Discharge Disposition: Home Principal Diagnosis: Acute pulmonary emboli Problems/Secondary Diagnoses: Antithrombin III deficiency History of previous pulmonary embolism Pleuritic chest pain Myocardial demand ischemia Immunizations: Have You Had Influenza Vaccine: No History of Tetanus Vaccine?: Unknown History of Pneumococcal: Unknown History of Hepatitis B Vaccine: Unknown Procedures: CTA chest Echocardiogram Venous Dopplers of lower extremities bilaterally Consultations: None Medication Reconciliation New Medications: Acetaminophen (Mapap) 325 Mg Tab 650 MG PO Q4H PRN for Pain or Fever for 7 Days Docusate Sodium (Docusate Sodium) 100 Mg Cap 100 MG PO BID for 30 Days, #60 CAP OTC Enoxaparin (Lovenox) 80 Mg/0.8 Ml Inj 70 MG SQ Q12H for 3 Days, #6 SYR 1 Refill REMAIN ON THIS UNTIL TOLD TO STOP BY COUMADIN CLINIC Warfarin Sod (Coumadin) 2 Mg Tab 2 MG PO DAILY@16 for 30 Days, #30 TAB Discharge Exam Patient feeling great, no chest pain at all. Does not feel short of breath with ambulation. She is ready for discharge. Physical Exam General Appearance: WD/WN, no apparent distress Eyes: normal inspection, sclerae normal ENT: hearing grossly normal Neck: trachea midline Respiratory/Chest: lungs clear, normal breath sounds, no respiratory distress, no accessory muscle use Cardiovascular: regular rate, rhythm, no edema, no gallop, no murmur Abdomen: normal bowel sounds, non tender, soft, no organomegaly Extremities: non-tender, normal inspection, no pedal edema, no calf tenderness Neurologic/Psychiatric: alert, normal mood/affect, oriented x 3 Skin: normal color, warm/dry, no rash Review of Systems: Constitutional: No fever Eyes: No problem reported ENT: No problem reported Respiratory: No shortness of breath Cardiovascular: No chest pain Abdomen: + constipation (Usually only has a bowel movement 2 times per week and has to strain), + GI bleeding (Has occasional bright red blood per rectum with straining for bowel movements), No problem reported Musculoskeletal: No problem reported Genitourinary - Female: No problem reported Neurologic: No problem reported Psychiatric: No problem reported Endocrine: No problem reported Hematologic / Lymphatic: No problem reported Integumentary: No problem reported Hospital Course This patient is 22yo female with previous history of PE and Antithrombin III deficiency, here with bilateral pulmonary emboli. 1. b/l pulmonary emboli - provoked, as she traveled to [place] a few weeks ago and then [place] the [place]. This is in the setting of known anti-thrombin III deficiency and prior pulmonary emboli several years ago. LE venous duplex studies negative. Echo w/o RV strain or cor pulmonale. Plan - Continue Lovenox 70mg q12h bridge 2mg of coumadin Sat/Sun then f/u in Anticoagulation Clinic on 10/17/17 CBC remains stable patient has 0 copay for the lovenox and knows how to use it coumadin will be LIFE-LONG 2. pleuritic chest pain - 2nd to #1 - norco prn counseled patient on natural history of her pain no evidence of pulmonary infarction on CTA last pm -Pain is now resolved but can take Tylenol if has some residual pain after discharge Minimal positive troponin - myocardial demand ischemia/transient RV strain likely. Negative urine HCG Stable for discharge to home Total Time Spent: Greater than 30 minutes This includes examination of the patient, discharge planning, medication reconciliation, and communication with other providers. Discharge Instructions Please refer to the electronic Patient Visit Report (Discharge Instructions) for additional information. Follow-Up With PCP within 1-2 weeks With Coumadin clinic on Tuesday for repeat INR Additional Copies To [facility]
[2017-10-15] MEDS ORDERED: WARFARIN SOD 2 MG TAB PO SCH (16:00)
[2017-10-17] MEDS ORDERED: IBUP-1459 PO (12:03)
--- NOTE | 2017-10-18 12:52 | EDITING REQUIRED CODING QUERY ---
CODING QUERY To promote full compliance with coding requirements relating to patient care, provider participation is requested in all cases of senior gis analyst uncertainty. Please assist us with the question(s) below: Coding Question(s): Please clarify below, in your clinical opinion, regarding the documentation of Myocardial Demand Ischemia. ( ) Myocardial Demand Ischemia is Demand Ischemia with or resulting in Myocardial Infarction (type 2) ( x ) Myocardial Demand Ischemia is Demand Ischemia only Physician's Response(s): Thank you Vandana Abraham Principal Diagnosis: "_that condition established after study, to be chiefly responsible for occasioning the admission of the patient to the hospital for care." Co-Existing Principal Diagnosis: "_when two or more diagnoses equally meet the criteria for principal diagnosis as determined by the circumstances of admission, diagnostic work up, and/or therapy provided, and the Alphabetic Index, Tabular List, or another coding guideline does not provide sequencing direction, any one of the diagnoses may be sequenced first." "When the physician has documented what appears to be a current diagnosis in the body of the record, but has not included the diagnosis in the final diagnostic statement, the physician should be asked whether the diagnosis should be added." (Source Coding Clinic 2 QTR90. p3-4)
== END 2017-10-15 14:34 | disposition home or self-care (01) | DRG 176 ==
LOC: C.EDB 15:57 → C.MED 20:47 → ENRESERV 21:14 → C.MED 10-13 05:25 → OBSVTOIN 10-13 16:37
PROVIDERS: ADMIT Internal Medicine; ATTEND Family Medicine
DX: I26.99 Other pulmonary embolism without acute cor pulmonale (principal); D68.59 Other primary thrombophilia; I24.8 Other forms of acute ischemic heart disease; Z86.711 Personal history of pulmonary embolism; Z88.6 Allergy status to analgesic agent; Z88.2 Allergy status to sulfonamides; Z82.49 Family history of ischemic heart disease and other diseases of the circulatory system; Z83.2 Family history of diseases of the blood and blood-forming organs and certain disorders involving the immune mechanism

== ENCOUNTER 2017-12-28 23:49 | Emergency (ER) | payer OTHER ==
[~2017-12-28] VITALS: Ht 167.6 cm; Wt 71.6 kg
[~2017-12-28 23:49] MED LIST: IBUP-1459 PO; NORE0.3526 PO; WARF2TAB8 PO
[2017-12-28 23:51] VITALS: TEMP 36.9; Ht 167.6 cm; Wt 71.6 kg
--- NOTE | 2017-12-29 00:21 | EMERGENCY ROOM VISIT NOTE ---
History Report prepared by Adele: Theodore Avery Under the Supervision of: Dr. Suzanne Palumbo D.O. First contact with patient: 00:04 Chief Complaint: VOMITING Stated Complaint: VOMITING,CHEST PAIN Nursing Triage Summary: Pt c/o nause/vomiting/diarrhea since this morning at 10am. History of Present Illness The patient is a 22 year old female who presents to the Emergency Room with complaints of persistent vomiting beginning today. The patient states that she has been unable to retain any fluids for the last 24 hours due to her vomiting. She also complains of mild urinary burning and abdominal pain that worsens when she vomits. She denies any chest pain, leg cramping, leg swelling, and diarrhea. She also denies any known sick contacts and chance of . She notes that she has been staying up late recently in order to study for finals which may have contributed to her illness. She reports that she has a history of a previous PE and is on Coumadin. Source of History: patient Onset: today Position: abdomen Quality: other (vomiting) Timing: other (persistent) Associated Symptoms: + abdominal pain, + urinary symptoms (mild urinary burning), No chest pain, No diarrhea Note: The patient also denies any leg cramping and leg swelling. Review of Systems See HPI for pertinent positives & negatives. A total of 10 systems reviewed and were otherwise negative. Past Medical & Surgical Medical Problems: (1) Factor V deficiency (2) Pulmonary embolism Family History Blood clots Factor V deficiency Social History Smoking Status: Never Smoker Drug Use: none Marital Status: single Occupation Status: [employer] student Current/Historical Medications Scheduled Norethindrone (Contraceptive) (Yamila), 1 TAB PO DAILY Warfarin Sod (Jantoven), 2 MG PO 5XWK Warfarin Sod (Jantoven), 1 MG PO 2XWK Scheduled PRN Ibuprofen (Motrin), 400 MG PO TID PRN for Pain Allergies Coded Allergies: Diclofenac (Verified Allergy, Severe, CHOKING, 10/12/17) Sulfamethoxazole w/Trimethoprim (Unverified Allergy, Severe, CHOAKING, ) Physical Exam Vital Signs Date Time Temp Pulse Resp B/P (MAP) Pulse Ox O2 Delivery O2 Flow Rate FiO2 12/29/17 02:32 92 18 110/67 98 12/29/17 01:35 93 18 96/60 99 Room Air 12/28/17 23:51 36.9 98 18 110/74 99 Room Air Physical Exam HEENT: Head - normocephalic and atraumatic Pupils are equal, round, and reactive to light. Extraocular eye muscles are intact, and sclera are anicteric. Nose - moist nasal mucosa without discharge. Mouth - moist buccal mucosa. Oropharynx is nonerythematous and there is no tonsillar exudate or edema noted. Neck: Supple; no JVD, nuchal rigidity, cervical lymphadenopathy. Heart: Regular rhythm and tachycardic. There is a normal S1 and S2 with no murmurs, clicks, or gallops appreciated. Lungs: Clear to auscultation bilaterally with no wheezes, rales, or rhonchi. Abdomen: Soft, nondistended, with good bowel sounds. There are no palpable pulsatile masses or hepatosplenomegaly. There is no guarding, rigidity, or rebound noted. Mild LLQ pain to palpation. Extremities: No evidence of cyanosis, clubbing, or edema. There are easily palpable peripheral pulses. Skin: warm and dry with good turgor and no rashes, pale. Medical Decision & Procedures Laboratory Results 12/29/17 00:15 Red Blood Count 4.20, Mean Corpuscular Volume 87.4, Mean Corpuscular Hemoglobin 30.0, Mean Corpuscular Hemoglobin Concent 34.3, Mean Platelet Volume 9.5, Neutrophils (%) (Auto) 91.2, Lymphocytes (%) (Auto) 5.2, Monocytes (%) (Auto) 3.0, Eosinophils (%) (Auto) 0.1, Basophils (%) (Auto) 0.2, Neutrophils # (Auto) 9.08, Lymphocytes # (Auto) 0.52, Monocytes # (Auto) 0.30, Eosinophils # (Auto) 0.01, Basophils # (Auto) 0.02 12/29/17 00:15 Test 12/29/17 00:10 12/29/17 00:15 Prothrombin Time 24.7 SECONDS (9.0-12.0) Prothromb Time International Ratio 2.4 (0.9-1.1) Activated Partial Thromboplast Time 34.9 SECONDS (21.0-31.0) Partial Thromboplastin Ratio 1.3 Urine Color DK YELLOW Urine Appearance CLEAR (CLEAR) Urine pH 7.0 (4.5-7.5) Urine Specific Martha 1.028 (1.000-1.030) Urine Protein NEG (NEG) Urine Glucose (UA) NEG (NEG) Urine Ketones TRACE (NEG) Urine Occult Blood NEG (NEG) Urine Nitrite NEG (NEG) Urine Bilirubin NEG (NEG) Urine Urobilinogen NEG (NEG) Urine Leukocyte Esterase NEG (NEG) Urine Test NEG (NEG) White Blood Count 9.96 K/uL (4.8-10.8) Red Blood Count 4.20 M/uL (4.2-5.4) Hemoglobin 12.6 g/dL (12.0-16.0) Hematocrit 36.7 % (37-47) Mean Corpuscular Volume 87.4 fL (80-100) Mean Corpuscular Hemoglobin 30.0 pg (25-34) Mean Corpuscular Hemoglobin Concent 34.3 g/dl (32-36) Platelet Count 216 K/uL (130-400) Mean Platelet Volume 9.5 fL (7.4-10.4) Neutrophils (%) (Auto) 91.2 % Lymphocytes (%) (Auto) 5.2 % Monocytes (%) (Auto) 3.0 % Eosinophils (%) (Auto) 0.1 % Basophils (%) (Auto) 0.2 % Neutrophils # (Auto) 9.08 K/uL (1.4-6.5) Lymphocytes # (Auto) 0.52 K/uL (1.2-3.4) Monocytes # (Auto) 0.30 K/uL (0.11-0.59) Eosinophils # (Auto) 0.01 K/uL (0-0.5) Basophils # (Auto) 0.02 K/uL (0-0.2) RDW Standard Deviation 40.1 fL (36.4-46.3) RDW Coefficient of Variation 12.5 % (11.5-14.5) Immature Granulocyte % (Auto) 0.3 % Immature Granulocyte # (Auto) 0.03 K/uL (0.00-0.02) Anion Gap 7.0 mmol/L (3-11) Est Creatinine Clear Calc Drug Dose 144.4 ml/min Estimated GFR () 149.7 Estimated GFR (Non- 129.1 BUN/Creatinine Ratio 26.2 (10-20) Calcium Level 8.9 mg/dl (8.5-10.1) Total Bilirubin 1.0 mg/dl (0.2-1) Direct Bilirubin 0.2 mg/dl (0-0.2) Aspartate Amino Transf (AST/SGOT) 15 U/L (15-37) Alanine Aminotransferase (ALT/SGPT) 18 U/L (12-78) Alkaline Phosphatase 53 U/L (45-117) Total Protein 7.9 gm/dl (6.4-8.2) Albumin 4.4 gm/dl (3.4-5.0) Lipase 111 U/L (73-393) Laboratory results per my review. Medications Administered Medications (Trade) Dose Ordered Sig/Concepción Route Start Time Stop Time Status Last Admin Dose Admin Sodium Chloride 1,000 ml @ 999 mls/hr Q1H1M STAT IV 12/29/17 00:38 12/29/17 01:38 DC 12/29/17 00:49 999 MLS/HR Ondansetron HCl (Zofran Inj) 4 mg NOW STAT IV 12/29/17 00:38 12/29/17 00:39 DC 12/29/17 00:49 4 MG Ondansetron HCl (ZOFRAN ODT 4MG Home Pack) 1 homepack UD ONCE PO 12/29/17 02:30 12/29/17 02:31 DC 12/29/17 02:27 1 HOMEPACK Procedure 0038: Zofran Inj 4mg IV, Sodium Chloride 1000 ml @ 999 mls/hr IV. 0230: Ondansetron HCl 1 homepack PO ED Course 0010: The patient was evaluated in room C12. A complete history and physical examination were performed. Nursing notes and previous electronic medical records were reviewed. IV lock was established and labs were drawn as above. 0038: Zofran Inj 4mg IV, Sodium Chloride 1000 ml @ 999 mls/hr IV. 0129: I reevaluated and updated the patient. She is feeling much better. She is drinking water with no problems and has not had any further vomiting since she has been in the emergency department. She is currently drinking leonela tessa and is eating crackers. 0207: Upon reevaluation, the patient is doing well. She had coags drawn. INR was 2.4. She has an appointment tomorrow with the coag clinic. She is asking for some Zofran to go home with. I discussed findings and results with her. She verbalized agreement of the treatment plan. The patient was discharged home. 0230: Ondansetron HCl 1 homepack PO Medical Decision The patient is a 22 year old female who presents to the Emergency Room with complaints of persistent vomiting beginning today. Differential diagnoses include: , gastritis, viral illness, and dehydration. Lab Results Show: No leukocytosis. Stable H&H. Normal renal function. Normal LFTs and lipase. negative. Urine had trace ketones. INR 2.4. This is a 22-year-old female patient who presents to the emergency department with significant vomiting and probable dehydration. The patient states that she is unable to keep anything down. At times, she does have some abdominal pain. On physical exam, she had minimal discomfort in the left lower quadrant of the abdomen. After receiving IV fluids and Zofran, the patient is feeling much better. She could drink with no further vomiting. I reviewed laboratory studies with the patient. She was told return to the emergency department if she had worsening symptoms. Otherwise she can follow-up for outpatient evaluation if the symptoms persist. Medication Reconcilliation Current Medication List: was personally reviewed by me Blood Pressure Screening Patient's blood pressure: Normal blood pressure Blood pressure disposition: Did not require urgent referral Impression Primary Impression: Vomiting Additional Impression: Dehydration Scribe Attestation The scribe's documentation has been prepared under my direction and personally reviewed by me in its entirety. I confirm that the note above accurately reflects all work, treatment, procedures, and medical decision making performed by me. Departure Information Dispostion Home / Self-Care Referrals [facility] (PCP) Forms HOME CARE DOCUMENTATION FORM, IMPORTANT VISIT INFORMATION Patient Instructions My [facility] Additional Instructions Drink plenty of clear fluids (water, Gatorade, popsicles, etc.) Advance your diet slowly as tolerated. Maintain a bland diet until symptoms resolve. BRAT diet: Bananas, rice, applesauce and toast. Follow up with your physician in 2-3 days for reevaluation if symptoms persist. Return to the emergency department for worsening symptoms or any medical concerns. zofran - 1 tab, under your tongue every 4-6 hours for nausea Problem Qualifiers Primary Impression: Vomiting Vomiting type: unspecified Vomiting Intractability: non-intractable Nausea presence: with nausea Qualified Codes: R11.2 - Nausea with vomiting, unspecified
[2017-12-29 00:35] LABS: BASO % 0.2 %; BASO ABS # 0.02 K/uL (0-0.2); EOS % 0.1 %; EOS ABS # 0.01 K/uL (0-0.5); HEMATOCRIT 36.7 % (37-47); HEMOGLOBIN 12.6 g/dL (12.0-16.0); IG# 0.03 K/uL (0.00-0.02); LYMPH % 5.2 %; LYMPH ABS # 0.52 K/uL (1.2-3.4); MEAN CELL VOLUME 87.4 fL (80-100); MEAN CORPUSCULAR HGB CONC 34.3 g/dl (32-36); MEAN PLATELET VOLUME 9.5 fL (7.4-10.4); NEUT % 91.2 %; NEUT ABS # 9.08 K/uL (1.4-6.5); PLATELET COUNT 216 K/uL (130-400); RED CELL DISTRIBUTION WIDTH CV 12.5 % (11.5-14.5); RED CELL DISTRIBUTION WIDTH SD 40.1 fL (36.4-46.3); WHITE BLOOD COUNT 9.96 K/uL (4.8-10.8)
[2017-12-29] MEDS ORDERED: ONDANSETRON INJ 2 MG/ML 2 ML VIAL IV STA (00:38)
[2017-12-29] MEDS ORDERED: SODIUM CHLORIDE 0.9% 1000ML 1,000 ML IV STA (00:38)
[2017-12-29 00:55] LABS: ALBUMIN 4.4 gm/dl (3.4-5.0); CALCIUM 8.9 mg/dl (8.5-10.1); CREATININE 0.63 mg/dl (0.60-1.20); POTASSIUM 3.7 mmol/L (3.5-5.1)
[2017-12-29 00:58] LABS: TOTAL PROTEIN 7.9 gm/dl (6.4-8.2)
[2017-12-29 01:52] LABS: INR 2.4 (0.9-1.1); PTT PATIENT 34.9 SECONDS (21.0-31.0)
[2017-12-29] MEDS ORDERED: PERCOCET HOME PACK PO ONE (02:15)
[2017-12-29] MEDS ORDERED: ONDANSETRON HOME PACK 4MG OD TAB PO ONE (02:30)
[2017-12-29 02:32] VITALS: BP 110/67; PULSE 92; O2SAT 98
== END 2017-12-29 02:34 | disposition home or self-care (01) ==
LOC: C.EDB 23:50 → C.EDC 12-29 02:34
DX: R11.2 Nausea with vomiting, unspecified (principal); E86.0 Dehydration; R10.32 Left lower quadrant pain; R00.0 Tachycardia, unspecified; R30.0 Dysuria; Z79.01 Long term (current) use of anticoagulants; Z86.711 Personal history of pulmonary embolism; Z79.3 Long term (current) use of hormonal contraceptives; Z88.6 Allergy status to analgesic agent; Z88.2 Allergy status to sulfonamides; Z83.2 Family history of diseases of the blood and blood-forming organs and certain disorders involving the immune mechanism